=== PATIENT | female | born 1975 | race African-American/Black ===

== ENCOUNTER 2016-04-15 15:18 | Emergency (ER) | payer OTHER ==
[2016-04-15] MEDS ORDERED: ASPIRIN 81 MG CHEW TAB ONE (20:33)
== END 2016-04-15 22:52 | disposition home or self-care (01) ==
LOC: ER 15:18
DX: R07.2 Precordial pain (principal)
CPT/HCPCS: 36415; 71010; 80053; 82550; 83735; 84484; 84703; 85025; 85610; 85730; 93005